=== PATIENT | male | born 1970 | race Caucasian/White ===

== ENCOUNTER → 2023-01-04 | Outpatient (CLI) | payer BC ==
[~2023-01-04] MED LIST: LOSA50TA28 PO
== END ==
LOC: M LABSMTC 11:01
PROVIDERS: ATTEND Anesthesiology
DX: Z01.818 Encounter for other preprocedural examination (principal)

== ENCOUNTER 2023-11-20 06:52 | Day surgery (SDC) | payer BC ==
[~2023-11-20] VITALS: Ht 182.9 cm; Wt 128.5 kg
[~2023-11-20 06:52] MED LIST changes: +NS 1,000 ML IV ONE
[2023-11-20] MEDS ORDERED: propofoL 200 MG/20 ML VIAL As Ordered ONE ×2 (08:20→08:30)
[2023-11-20 08:40] VITALS: TEMP 97.1
[2023-11-20 08:55] VITALS: BP 127/81; O2SAT 96
== END 2023-11-20 09:15 | disposition home or self-care (01) ==
LOC: M OPP 06:52
PROVIDERS: ATTEND Internal Medicine Gastroenterology
DX: Z12.11 Encounter for screening for malignant neoplasm of colon (principal); Z80.0 Family history of malignant neoplasm of digestive organs; D12.6 Benign neoplasm of colon, unspecified; K57.30 Diverticulosis of large intestine without perforation or abscess without bleeding; K64.4 Residual hemorrhoidal skin tags; K64.8 Other hemorrhoids; F17.220 Nicotine dependence, chewing tobacco, uncomplicated; G47.30 Sleep apnea, unspecified; Z99.89 Dependence on other enabling machines and devices; Z79.899 Other long term (current) drug therapy